=== PATIENT | male | born 1945 | race Caucasian/White ===

== ENCOUNTER 2017-07-24 19:07 | Emergency (ER) | payer MEDICARE, BC ==
[~2017-07-24] VITALS: Ht 182.9 cm; Wt 110.5 kg
[~2017-07-24 19:07] MED LIST: ALEVE 220MG220 MG PO; ATOXIMETIN-B1 CAP PO; B/P; BACTRIM DS 8001 TAB PO; CARAFATE 1GM1 G PO; CARDURA4 MG PO; CEPHALEXIN500 M1 PO; COLACE 100100 MG/CAP PO; COUMADIN 5MG5 MG/TAB PO; COUMADIN7.5 MG PO; DICLOFEN; DILAUDID 2MG TAB2 MG PO; FLUTICASON0.05 MG/Ac NS; HCTZ; HYDROCHLOROTH12.5 MG PO; LIPITOR 10MG10 MG; LIPITOR 10MG10 MG PO; MECLIZINE HCL25 M1 PO; MELOXICAM7.5 MG PO; MICROZIDE12.5 MG PO; MULTI VITAMINS1 TAB PO; MULTIPLE VITAMI1 CAP PO; NORCO 325 MG-51 TAB PO; OXYCODONE5 M1 PO; PEPCID 20MG TAB20 MG; PEPCID 20MG TAB20 MG PO; PEPCID20 MG PO; PERCOCET 325 MG1 TA2 PO; PREDNISONE20 MG PO; PRILOSEC 20MG20 MG PO; TRICOR145 MG PO; TYLENOL 325MG325 MG PO; ULTRAM100 MG PO; VALIUM 2MG T2 MG/TAB PO; VIT C; VIT D; VITAMIN C500 MG PO; ZITHROMAX 250M250 MG PO; ZITHROMAX Z PA250 MG PO; ZOFRAN 4MG T4 MG/TAB PO
[2017-07-24 19:11] VITALS: TEMP 96.9
[2017-07-24 20:02] LABS: BASO % 0.4 % (0.0-2.0); EOS # 0.1 (0.0-0.7); EOS % 1.3 % (0-4.0); GRAN # 6.9 (1.4-6.5); HEMATOCRIT 46.9 % (42.0-52.0); LYMPH # 0.8 (1.2-3.4); LYMPH % 9.4 % (20.0-51.0); MEAN CELL VOLUME 90 fl (80.0-100.0); MEAN CORPUSCULAR HEMOGLOBIN 31 pg (27.0-31.0); MEAN CORPUSCULAR HGB CONC 34 g/dl (33.0-37.0); MONO # 0.5 (0.1-0.6); MONO % 5.4 % (1.7-9.3); PLATELET COUNT 151 K/mm3 (130-400); RED BLOOD COUNT 5.21 M/mm3 (4.20-5.60); REDCELL DISTRIBUTION WIDTH-CV 13.3 % (11.5-14.5); WHITE BLOOD COUNT 8.3 K/mm3 (4.8-10.8)
[2017-07-24 20:15] LABS: ALANINE AMINOTRANSFERASE 35 U/L (21-72); ALBUMIN 4.4 gm/dL (3.5-5.0); ALKALINE PHOSPHATASE 56 U/L (50-136); ANION GAP 12 mmol/L (7-16); BLOOD UREA NITROGEN 28 mg/dL (9-20); CALCIUM 9.3 mg/dL (8.4-10.2); CARBON DIOXIDE 22 mmol/L (22-30); CHLORIDE 106 mmol/L (98-107); CREATININE, serum 1.36 mg/dL (0.66-1.25); GLUCOSE 122 mg/dL (74-106); POTASSIUM 3.5 mmol/L (3.4-5.0); SODIUM 140 mmol/L (137-145); TOTAL PROTEIN 6.9 gm/dL (6.4-8.2)
[2017-07-24 20:28] LABS: TROPONIN-I < 0.012 ng/mL (0.000-0.034)
[2017-07-24] MEDS ORDERED: ANTIVERT 25MG25 MG PO (20:57)
[2017-07-24 21:09] VITALS: BP 130/73; PULSE 64
== END 2017-07-24 21:09 | disposition home or self-care (01) ==
LOC: COL.ER 19:07
PROVIDERS: Emergency Medicine
DX: R42 Dizziness and giddiness (principal); E78.5 Hyperlipidemia, unspecified; I10 Essential (primary) hypertension; K21.9 Gastro-esophageal reflux disease without esophagitis; Z79.01 Long term (current) use of anticoagulants; Z86.718 Personal history of other venous thrombosis and embolism; Z87.891 Personal history of nicotine dependence
CPT/HCPCS: J2405

== ENCOUNTER → 2018-09-01 | Outpatient (CLI) | payer MEDICARE, BC ==
[~2018-09-01] MED LIST changes: +ANTIVERT 25MG25 MG PO
== END ==
LOC: COL.RAD 07:17
DX: N28.1 Cyst of kidney, acquired (principal); R35.0 Frequency of micturition

== ENCOUNTER → 2019-01-19 | Outpatient (CLI) | payer MEDICARE, BC ==
[~2019-01-19] MED LIST changes: +DULCOLAX STOOL100 MG PO; +FLONASEALLERGY NS; +MAG-OX 400400 MG/TAB PO; +PROAIR HFA0.09 MG/AC IH; +PYRIDIUM 100MG100 MG PO; +TOVIAZ4 MG PO
== END ==
LOC: COL.VAS 13:15
DX: M79.605 Pain in left leg (principal); Z86.711 Personal history of pulmonary embolism

== ENCOUNTER 2019-01-20 18:34 | Inpatient (IN) | payer MEDICARE, BC ==
[~2019-01-20] VITALS: Ht 182.9 cm; Wt 91.2 kg
[~2019-01-20 18:34] MED LIST changes: -DULCOLAX STOOL100 MG PO; -FLONASEALLERGY NS; -MAG-OX 400400 MG/TAB PO; -PROAIR HFA0.09 MG/AC IH; -PYRIDIUM 100MG100 MG PO; -TOVIAZ4 MG PO
[2019-01-20 19:43] LABS: ALBUMIN 3.8 gm/dL (3.5-5.0); BASO % 0.4 % (0.0-2.0); BILIRUBIN,TOTAL 1.3 mg/dL (0.0-1.0); CREATININE, serum 1.58 mg/dL (0.66-1.25); EOS # 0.4 (0.0-0.7); EOS % 3.3 % (0-4.0); GRAN # 8.2 (1.4-6.5); GRAN % 77.1 % (42.2-75.2); HEMATOCRIT 44.5 % (42.0-52.0); HEMOGLOBIN 15.1 g/dl (13.5-18.0); LYMPH # 1.1 (1.2-3.4); MEAN CELL VOLUME 92 fl (80.0-100.0); MEAN CORPUSCULAR HEMOGLOBIN 31 pg (27.0-31.0); MEAN CORPUSCULAR HGB CONC 34 g/dl (33.0-37.0); MEAN PLATELET VOLUME 10.4 fl (7.4-10.4); MONO # 0.9 (0.1-0.6); MONO % 8.8 % (1.7-9.3); PLATELET COUNT 143 K/mm3 (130-400); POTASSIUM 3.8 mmol/L (3.4-5.0); RED BLOOD COUNT 4.83 M/mm3 (4.20-5.60); REDCELL DISTRIBUTION WIDTH-CV 13.2 % (11.5-14.5); TOTAL PROTEIN 6.8 gm/dL (6.4-8.2)
[2019-01-20 19:49] LABS: INR 1.1 (0.8-3.0); PROTHROMBIN TIME 12.8 SECONDS (9.7-12.8)
[2019-01-20 19:54] LABS: TROPONIN-I 0.032 ng/mL (0.000-0.035)
[2019-01-20] MEDS ORDERED: FLONASEALLERGY NS (21:10)
[2019-01-20] MEDS ORDERED: MAG-OX 400400 MG/TAB PO (21:10)
[2019-01-20 22:14] VITALS: BP 141/68; PULSE 80; TEMP 98.2
--- NOTE | 2019-01-20 22:14 | NUR ---
Patient arrived to room 309 accompanied by . Patient able to ambulate to bed with SBA.
[2019-01-20] MEDS ORDERED: DULCOLAX STOOL100 MG PO (22:19)
[2019-01-20] MEDS ORDERED: TOVIAZ4 MG PO (22:22)
[2019-01-20] MEDS ORDERED: PROAIR HFA0.09 MG/AC IH (22:24)
[2019-01-20] MEDS ORDERED: PYRIDIUM 100MG100 MG PO (22:28)
[2019-01-21 00:11] VITALS: BP 100/56; PULSE 76; TEMP 98.8
--- NOTE | 2019-01-21 02:22 | NUR ---
Pain reassessed on pt, states pain is improved now at 6/10. Discussed IV dilaudid is another option for breakthrough pain, pt does not want anything else for pain at this time. Will notify this nurse if pain begins to worsen.
--- NOTE | 2019-01-21 02:40 | NUR ---
RT in to check patient's O2. Sp02 in 80's. Reported to this nurse that she was going to put pt on a few liters of oxygen.
[2019-01-21 03:47] VITALS: BP 110/66; PULSE 72; TEMP 98.5
--- NOTE | 2019-01-21 04:15 | NUR ---
PROJECT MANAGER called this nurse into room, IV site bleeding around cannula. New IV site started in left forearm. Old iv site in right AC discontinued with gauze applied.
--- NOTE | 2019-01-21 04:30 | NUR ---
Patient still c/o of pain with coughing/movement. Requested IV pain medication. DIlaudid ordered for breakthrough pain. Administered to patient. at this time.
--- NOTE | 2019-01-21 04:39 | NUR ---
Unable to change heparin gtt rate in computer, faxed down to pharmacy to adjust. Per heparin protocol, infusion decreased by 1.5 mls/hr. Changed from 20 mls/hr to 18.5. Verified on pump with NELY Berry. Heparin gtt infusing into new iv site in left forearm.
--- NOTE | 2019-01-21 05:10 | NUR ---
Patient reporting improved pain after dilaudid administration. Rated at 5/10.
--- NOTE | 2019-01-21 06:01 | NUR ---
Patient reports able to sleep for the past hour with pain under control. Per NATHANIEL Saravia, patient has remained in bed- using urinal. went home and will be back this morning. No further needs at this time.
--- NOTE | 2019-01-21 06:51 | NUR ---
Report received, went to meet patient and he is observed sleeping on his left side. Call light is within reach.
--- NOTE | 2019-01-21 07:03 | NUR ---
Report given to NELY Schaeffer. Patient resting in bed, no needs at this time.
[2019-01-21 07:30] VITALS: BP 118/55; PULSE 66; TEMP 98.4
--- NOTE | 2019-01-21 07:36 | NUR ---
Ultrasound called regarding bilateral lower doppler stating he had just had one completed on the and questioned if this needed to be repeated. Spoke with the PA taking care of patient for the day and received instructions to hold off on the testing. Notified ultrasound.
[2019-01-21 07:54] LABS: BASO % 0.4 % (0.0-2.0); EOS # 0.3 (0.0-0.7); EOS % 3.2 % (0-4.0); GRAN % 71.3 % (42.2-75.2); HEMATOCRIT 42.2 % (42.0-52.0); HEMOGLOBIN 14.2 g/dl (13.5-18.0); LYMPH # 1.5 (1.2-3.4); MEAN CELL VOLUME 92 fl (80.0-100.0); MEAN CORPUSCULAR HEMOGLOBIN 31 pg (27.0-31.0); MEAN CORPUSCULAR HGB CONC 34 g/dl (33.0-37.0); MEAN PLATELET VOLUME 10.5 fl (7.4-10.4); MONO % 9.7 % (1.7-9.3); PLATELET COUNT 137 K/mm3 (130-400); RED BLOOD COUNT 4.59 M/mm3 (4.20-5.60); REDCELL DISTRIBUTION WIDTH-CV 13.2 % (11.5-14.5)
[2019-01-21 08:08] LABS: CALCIUM 8.7 mg/dL (8.4-10.2); CREATININE, serum 1.48 mg/dL (0.66-1.25); POTASSIUM 3.6 mmol/L (3.4-5.0)
[2019-01-21 08:34] LABS: TROPONIN-I 6 HR POST INITIAL 0.048 ng/mL (0.000-0.034)
[2019-01-21 10:43] VITALS: BP 125/49; PULSE 66; TEMP 98.5
--- NOTE | 2019-01-21 11:16 | NUR ---
HepXa resulted at 0.44, no change to rate or dose required. Next draw 1700.
[2019-01-21 16:03] VITALS: BP 109/77; PULSE 72; TEMP 98.1
[2019-01-21 18:55] VITALS: BP 133/70; PULSE 76; TEMP 97.7
--- NOTE | 2019-01-21 19:06 | NUR ---
Patient is visiting with family. No pain complaints or further needs. HepXA is 0.36, rate remains the same. Report given to NELY Chen.
--- NOTE | 2019-01-21 19:45 | NUR ---
Patient resting in bed with family at bedside. Assessment completed- pt on oxygen for low Sp02 , currently at 95% with 2 L. Diminishe dlung sounds all lobes, pain with cough, but states he does not want anyting for pain at this time, will notify nurse if this changes. On heparin gtt at 18.5 mls/hr, next heparin xa in the morning. Ion hose on bilateral lower extremities. No further needs at this time.
[2019-01-22] VITALS (7 sets, daily range): BP systolic 105–122; BP diastolic 45–57; PULSE 62–71; TEMP 97.5–98.5
--- NOTE | 2019-01-22 05:21 | NUR ---
Pt slept most of the night, erports mild pain worse with cough, did not want anything for pain last night. On heparin gtt at 18.5 mls/hr into left forearm. Vitals stable, at bedside.
[2019-01-22 06:26] LABS: CALCIUM 8.5 mg/dL (8.4-10.2); CREATININE, serum 1.45 mg/dL (0.66-1.25); POTASSIUM 3.5 mmol/L (3.4-5.0)
[2019-01-22 06:33] LABS: BASO % 0.6 % (0.0-2.0); EOS # 0.4 (0.0-0.7); EOS % 5.6 % (0-4.0); GRAN # 4.7 (1.4-6.5); GRAN % 67.5 % (42.2-75.2); HEMATOCRIT 39.5 % (42.0-52.0); HEMOGLOBIN 13.6 g/dl (13.5-18.0); LYMPH # 1.2 (1.2-3.4); LYMPH % 16.8 % (20.0-51.0); MEAN CELL VOLUME 91 fl (80.0-100.0); MEAN CORPUSCULAR HEMOGLOBIN 32 pg (27.0-31.0); MEAN CORPUSCULAR HGB CONC 34 g/dl (33.0-37.0); MEAN PLATELET VOLUME 10.1 fl (7.4-10.4); MONO # 0.6 (0.1-0.6); MONO % 8.9 % (1.7-9.3); PLATELET COUNT 137 K/mm3 (130-400); RED BLOOD COUNT 4.32 M/mm3 (4.20-5.60); REDCELL DISTRIBUTION WIDTH-CV 13.1 % (11.5-14.5)
--- NOTE | 2019-01-22 07:16 | NUR ---
Report given to NELY Harris. Patient sitting upin bed with at bedside. NO needs at this time.
--- NOTE | 2019-01-22 07:22 | NUR ---
RECEIVED REPORT FROM NELY BLEVINS.
[2019-01-22 08:01] LABS: INR 1.2 (0.8-3.0); PROTHROMBIN TIME 13.7 SECONDS (9.7-12.8)
--- NOTE | 2019-01-22 09:02 | NUR ---
Initial visit; Nurse with patient, Collar Starcher spoke with family member who stated that Mahin is "fine right now," just a little impatient to go home. Collar Starcher wished Mahin and family well.
--- NOTE | 2019-01-22 09:24 | NUR ---
PT AWAKE,A/OX3.RESTING IN BED.AWARE OF LIMITED ACTIVITY.OXYGEN AT 2.5L/NC.BREATHING EVEN AND UNLABORED.PT ON HEPARIN DRIP WITH RATE AT 19.5ML/HR.RECHECK HEP XA AT 1200.PT DENIES ANY NEEDS AT THIS TIME.JOÃO,STUDENT NURSE ASSISTING WITH PATIENT CARE TODAY.WILL CONTINUE TO MONITOR.CALL LIGHT IN REACH
[2019-01-22 10:37] LABS: PROTEIN C ACTIVITY 100 % (70-150)
--- NOTE | 2019-01-22 13:46 | NUR ---
Primary nurse was assisted [facility] [id number] patient care by [employer] student Cammie Riley and [facility] instructor Adelina Sanders RN-BN.
--- NOTE | 2019-01-22 15:13 | NUR ---
BECCA guillaume met with the patient and patient's (Ying) to discuss discharge plan. The patient lives in [place] with his . The patient does not use any DME, but has a walking stick available to him. The patient reports independence with ADLs. The patient's PCP is Dr. Anthony and he receives his medications from [facility] [employer] and reports no difficulties obtaining his medications. The patient and patient's believe that he has a DPOA-HC completed at Dr. Anthony's office. BECCA guillaume attempted to contact Dr. Anthony's office and left a message requesting a copy of the DPOA-HC. The patient plans to return home upon dischage. No identified needs at this time, but SW to continue to follow.
--- NOTE | 2019-01-22 18:13 | NUR ---
PT HAS HAD AN UNEVENFUL DAY.SITTING UP IN BED AT THIS TIME EATING SUPPER.HEP XA DRAWN.PATIENT DENIES ANY NEEDS AT THIS TIME.WILL ADJUST HEPARIN ACCORDINGLY.CALL LIGHT IN REACH
--- NOTE | 2019-01-22 20:22 | NUR ---
PT IN BED WITH HOB AT 45 DEGREE ANGLE, DENIES PAIN OR DISCOMFORT, BY SIDE. PT HAS TASNEEM HOSE ON AND HEPARIN DRIP STILL GOING AT 19.5. AWARE LAB WILL COME IN AT MIDNIGHT TO CHECK VALUES FOR HEPARIN. NO NEEDS AT THIS TIME, CALL LIGHT WITHIN REACH.
--- NOTE | 2019-01-22 20:47 | NUR ---
CALLED YANDEL ARMSTRONG IN REFERENCE TO PT HAVING BLOOD IN SPUTUM. NO NEW ORDERS AT THIS TIME.
--- NOTE | 2019-01-23 00:52 | NUR ---
PT HAS BEEN INCONTINENT OF URINE AND HAD TO DO COMPLETE BED CHANGE THIS IS THE SECOND TIME THIS NIGHT THAT HE WAS INCONTINENT. PT'S ASSISTED WITH CHANGING PT. PT DID NOT WANT TO CHANGE UNDERWEAR, BUT ADVISED THAT IT WAS WET AND NEEDED TO BE CHANGED. A PULL UP WAS GIVEN TO PT.
[2019-01-23 03:37] VITALS: BP 108/57; PULSE 65; TEMP 98
--- NOTE | 2019-01-23 06:37 | NUR ---
UNEVENTFUL NIGHT, PT RESTED/SLEPT WELL, WITH NO C/O PAIN OR DISCOMFORT. PT'S AT BEDSIDE AND ASSISTED PT WHEN NEEDED, BUT PT STAYED IN BED MOST OF THE NIGHT. PT HAS CALL LIGHT WITHIN REACH.
--- NOTE | 2019-01-23 06:46 | NUR ---
report received from NELY Reddy.
--- NOTE | 2019-01-23 06:47 | NUR ---
hep XA 0.46,will recheck on 01/24/19 at 0600 per protocol.
[2019-01-23 07:09] LABS: INR 1.2 (0.8-3.0); PROTHROMBIN TIME 13.8 SECONDS (9.7-12.8)
[2019-01-23 07:13] LABS: BASO % 0.6 % (0.0-2.0); EOS # 0.4 (0.0-0.7); EOS % 6.4 % (0-4.0); GRAN # 4.6 (1.4-6.5); GRAN % 70.2 % (42.2-75.2); HEMATOCRIT 39.7 % (42.0-52.0); HEMOGLOBIN 13.2 g/dl (13.5-18.0); LYMPH % 15.2 % (20.0-51.0); MEAN CELL VOLUME 92 fl (80.0-100.0); MEAN CORPUSCULAR HEMOGLOBIN 31 pg (27.0-31.0); MEAN CORPUSCULAR HGB CONC 33 g/dl (33.0-37.0); MEAN PLATELET VOLUME 10.2 fl (7.4-10.4); MONO # 0.5 (0.1-0.6); MONO % 7.1 % (1.7-9.3); PLATELET COUNT 162 K/mm3 (130-400); RED BLOOD COUNT 4.32 M/mm3 (4.20-5.60); REDCELL DISTRIBUTION WIDTH-CV 12.9 % (11.5-14.5)
[2019-01-23 07:20] LABS: CALCIUM 8.6 mg/dL (8.4-10.2); CREATININE, serum 1.37 mg/dL (0.66-1.25); POTASSIUM 3.7 mmol/L (3.4-5.0)
[2019-01-23 07:27] VITALS: BP 119/50; PULSE 62; TEMP 98.1
--- NOTE | 2019-01-23 08:07 | NUR ---
Assessment complete.patient awake,a/ox3.denies pain or discomfort at this time.oxygen at 2.5l/nc.reports SOB on exertion.reports red itchy rash to back.Heparin gtt infusing at 19.5ml/hr.hep xa to be rechecked on 01/24/19 at 0600 per protocol.patient has ann hose on.reports no side pain.no other needs voiced.call light in reach
[2019-01-23 11:18] VITALS: BP 136/64; PULSE 59; TEMP 98.1
[2019-01-23 15:12] VITALS: BP 119/59; PULSE 64; TEMP 97.8
[2019-01-23 16:22] LABS: FACTOR II ACTIVITY 92 % (75 - 145)
--- NOTE | 2019-01-23 18:24 | NUR ---
PT RESTING IN RECLINER AT THIS TIME.HEPARIN DRIP INFUSING AT 19.5ML/HR.PT REPORTS COUGHING UP RED STRICK OF BLOOD. AWARE AND STATES TO MONITOR FOR ANY WORSENING. NOTIFIED.PATIENT REPORTS HAVING A BM AND STATES HE FEELS BETTER.DENIES ANY OTHER NEEDS AT THIS TIME.CALL LIGHT IN REACH
--- NOTE | 2019-01-23 19:15 | NUR ---
REPORT GIVEN TO NELY SPANGLER.
[2019-01-23 19:50] VITALS: BP 119/53; PULSE 63; TEMP 98.2
--- NOTE | 2019-01-23 20:47 | NUR ---
PT IN BED WITH HOB AT 30 DEGREE ANGLE, DENIES PAIN OR DISCOMFORT. PT ALREADY IN BED WITH LIGHTS OFF. BY SIDE AND CALL LIGHT WITHIN REACH. NO NEEDS AT THIS TIME.
[2019-01-23 23:35] VITALS: BP 140/73; PULSE 70
[2019-01-24 03:57] VITALS: BP 91/80; PULSE 67
--- NOTE | 2019-01-24 05:52 | NUR ---
UNEVENTFUL NIGHT FOR PT. PT HAS BEEN SLEEPING WELL. PT SOFTLY SNORES AND RESP EVEN AND UNLABORED, WITH NO S/S OF PAIN OR DISCOMFORT. PT HAS NOT BEEN SCORING ON HIS DETOX AND NEUROS ARE NORMAL. PT IS HOPING TO BE RELEASED TODAY. PT IS PLEASANT AND COOPERATIVE. CALL LIGHT WITHIN REAH.
--- NOTE | 2019-01-24 05:58 | NUR ---
PT HAS BEEN SLEEPING/RESTING IN BED, WITH NO C/O PAIN OR DISCOMFORT. PT HAS NOT REPORTED ANYMORE BLOOD IN HIS SPUTUM WHEN HE COUGHS UP. PT HAS HAD HIS IV CHANGED TODAY AT 0010. 20G PLACED IN RIGHT FOREARM X2 ATTEMPTS WITHOUT ANY DIFFICULTIES AND PT TOLERATED WELL. IV REMOVED FROM LEFT FOREARM, PRESSURE APPLIED TILL BLEEDING STOPPED, AND THEN PROTECTIVE DRSG APPLIED. PT ADVISED EARLIER IN SHIFT THAT HAS BEEN GETTING UP TO ASSIST HIM TO THE BATHROOM. CALL LIGHT WITHIN REACH.
--- NOTE | 2019-01-24 07:02 | NUR ---
PT'S THOUGHT THAT PT WAS GASPING FOR AIR. WENT INTO ROOM AND PT WAS BREAHING FINE, RESP EVEN AND UNLABORED, O2 SATS WERE 93% ON 3L/NC. PT DID NOT HAVE ANY C/O OF SOB. PT SHOWED ME THAT HE HAD COUGHED UP SPUTUM WITH BLOOD BUT ONLY TWICE DURING THE NIGHT. THE SPUTUM WAS A VERY SCANT AMOUNT WITH A SMALL AMOUNT OF DARK RED BLOOD. NO FURTHER NEEDS AND PT AND GOING BACK TO SLEEP. CALL LIGHT WITHIN REACH.
[2019-01-24 07:35] VITALS: BP 117/55; PULSE 66; TEMP 98
[2019-01-24 09:07] LABS: BASO % 0.6 % (0.0-2.0); EOS # 0.5 (0.0-0.7); EOS % 7.2 % (0-4.0); GRAN # 4.5 (1.4-6.5); GRAN % 72.3 % (42.2-75.2); HEMATOCRIT 39.7 % (42.0-52.0); HEMOGLOBIN 13.3 g/dl (13.5-18.0); LYMPH # 0.7 (1.2-3.4); LYMPH % 10.9 % (20.0-51.0); MEAN CELL VOLUME 92 fl (80.0-100.0); MEAN CORPUSCULAR HEMOGLOBIN 31 pg (27.0-31.0); MEAN CORPUSCULAR HGB CONC 34 g/dl (33.0-37.0); MEAN PLATELET VOLUME 10.2 fl (7.4-10.4); MONO # 0.5 (0.1-0.6); MONO % 8.4 % (1.7-9.3); PLATELET COUNT 171 K/mm3 (130-400); RED BLOOD COUNT 4.31 M/mm3 (4.20-5.60); REDCELL DISTRIBUTION WIDTH-CV 12.8 % (11.5-14.5)
[2019-01-24 09:13] LABS: CALCIUM 8.6 mg/dL (8.4-10.2); CREATININE, serum 1.39 mg/dL (0.66-1.25); POTASSIUM 3.9 mmol/L (3.4-5.0)
--- NOTE | 2019-01-24 09:18 | NUR ---
Assessment complete.patient awake,sitting up in bed eating breakfast with spouse at bedside.A/o x3.oxygen at 2.5l/nc.breathing even and unlabored.reports cough with minimal blood tinge.Heparin infusing at 19.5ml/hr.hep xa remains therapeutic.will continue to monitor.call light in reach
[2019-01-24 11:28] LABS: INR 1.3 (0.8-3.0)
[2019-01-24 12:16] VITALS: BP 106/50; PULSE 60; TEMP 98
--- NOTE | 2019-01-24 16:24 | NUR ---
THIS RN AMBULATED PATIENT AROUND THE UNIT.GAIT IS STABLE.NO SOB NOTED.WILL CONTINUE TO MONITOR.CALL LIGHT IN REACH
[2019-01-24 18:00] VITALS: BP 107/46; PULSE 62; TEMP 98
--- NOTE | 2019-01-24 18:21 | NUR ---
PATIENT RESTING IN RECLINER.ABLE TO AMBULATED WITH LIMITED ASSIST.HEP DRIP INFUSING. AT BEDSIDE.PATIENT DENIES ANY NEEDS AT THIS TIME.CALL LIGHT IN REACH
--- NOTE | 2019-01-24 19:01 | NUR ---
report given to NELY Chen
--- NOTE | 2019-01-24 20:46 | NUR ---
Patient sitting up in bed with at bedside. Denies pain at htis time. Assessment completed- pt reports able to get up and walk around the halls this afternoon. On 1 L oxygen via NC. Heparin gtt infusing at 19.5 mls/hr into right forearm, IV site no redness/edema. No further needs at this time.
[2019-01-24 23:28] VITALS: BP 114/41; PULSE 64; TEMP 98.6
[2019-01-25 03:11] VITALS: BP 111/44; PULSE 69
--- NOTE | 2019-01-25 05:06 | NUR ---
Pt slept for most of the night, no reports of pain. Heparin gtt infusing at 19.5 mls/hr, recheck this morning.
[2019-01-25 05:52] LABS: HEMATOCRIT 40.1 % (42.0-52.0); HEMOGLOBIN 13.3 g/dl (13.5-18.0); MEAN CELL VOLUME 92 fl (80.0-100.0); MEAN CORPUSCULAR HEMOGLOBIN 31 pg (27.0-31.0); MEAN CORPUSCULAR HGB CONC 33 g/dl (33.0-37.0); MEAN PLATELET VOLUME 9.6 fl (7.4-10.4); PLATELET COUNT 180 K/mm3 (130-400); RED BLOOD COUNT 4.35 M/mm3 (4.20-5.60)
[2019-01-25 06:28] LABS: INR 1.4 (0.8-3.0); PROTHROMBIN TIME 15.7 SECONDS (9.7-12.8)
[2019-01-25 08:42] VITALS: BP 132/59; PULSE 68; TEMP 97.6
[2019-01-25] MEDS ORDERED: LOVENOX 100100 MG/ML SQ (11:38)
[2019-01-25 12:17] LABS: LUPUS ANTICOAGULANT INR 1.3 (()); LUPUS ANTICOAGULANT PT 14.1 sec (())
[2019-01-25 12:18] VITALS: BP 134/46; PULSE 70; TEMP 98.2
--- NOTE | 2019-01-25 13:28 | NUR ---
PT WALKED WITH RT AND PT ON ROOM AIR. SPO2 90% WALKED APPROX. 600 FEET ON ROOM AIR SPO2 92% BY END OF WALK AT REST.
--- NOTE | 2019-01-25 15:58 | NUR ---
workers compensation consultant attended clinical rounds and met with patient and spouse as patient will discharge home today. Worker presented IM.
--- NOTE | 2019-01-25 16:00 | NUR ---
Gave pt discharge information, answered all questions. Removed INT to RF. catheter intact, no redness or swelling noted. Escorted pt out via wheelchair. Pt carried out all personal items.
--- NOTE | 2019-01-25 16:53 | NUR ---
Pt sitting in chair. Breathing even and unlabored, denies shortness of breath. Pt had removed TASNEEM hodiamond, helped pt to reapply them. Two small red abrasions on shins. Completed morning assessment. Pt denies any needs at this time. Call light in reach.
--- NOTE | 2019-01-25 17:08 | NUR ---
tHIS RN read and agreed with Daya Rn's shift assessment after performing my own. Pt was on 1 L via NC, denied SOB. No edema present. at bedside
== END 2019-01-25 16:00 | disposition home or self-care (01) | DRG 175 ==
LOC: COL.ER 18:34 → MEDICAL 20:34
PROVIDERS: Emergency Medicine; Hospitalist; Nurse Practitioner; Physician Assistant; ADMIT Family Medicine
DX: I26.99 Other pulmonary embolism without acute cor pulmonale (principal); J96.01 Acute respiratory failure with hypoxia; N17.9 Acute kidney failure, unspecified; R04.2 Hemoptysis; E78.5 Hyperlipidemia, unspecified; I12.9 Hypertensive chronic kidney disease with stage 1 through stage 4 chronic kidney disease, or unspecified chronic kidney disease; N18.9 Chronic kidney disease, unspecified; I27.20 Pulmonary hypertension, unspecified; J84.10 Pulmonary fibrosis, unspecified; R25.1 Tremor, unspecified; Z87.891 Personal history of nicotine dependence; Z79.01 Long term (current) use of anticoagulants; Z86.711 Personal history of pulmonary embolism
CPT/HCPCS: 99222-AI; 99223-AI; 99233-AI; 99239; J1170; J1644; J1650; J7040; Q9967

== ENCOUNTER 2019-02-05 10:46 | Inpatient (IN) | payer MEDICARE, BC ==
[2019-02-05] VITALS (16 sets, daily range): BP systolic 104–134; BP diastolic 57–89; PULSE 71–81; TEMP 98–98.3
[~2019-02-05] VITALS: Ht 182.9 cm; Wt 112.3 kg
[~2019-02-05 10:46] MED LIST changes: +DULCOLAX STOOL100 MG PO; +FLONASEALLERGY NS; +LOVENOX 100100 MG/ML SQ; +MAG-OX 400400 MG/TAB PO; +PROAIR HFA0.09 MG/AC IH; +PYRIDIUM 100MG100 MG PO; +TOVIAZ4 MG PO
[2019-02-05 11:15] LABS: BASO # 0.1 (0.0-0.2); BASO % 0.5 % (0.0-2.0); EOS # 0.8 (0.0-0.7); EOS % 8.5 % (0-4.0); GRAN # 6.1 (1.4-6.5); GRAN % 65.4 % (42.2-75.2); HEMATOCRIT 45.2 % (42.0-52.0); HEMOGLOBIN 15.5 g/dl (13.5-18.0); LYMPH # 1.6 (1.2-3.4); LYMPH % 17.7 % (20.0-51.0); MEAN CELL VOLUME 89 fl (80.0-100.0); MEAN CORPUSCULAR HEMOGLOBIN 31 pg (27.0-31.0); MEAN CORPUSCULAR HGB CONC 34 g/dl (33.0-37.0); MEAN PLATELET VOLUME 9.1 fl (7.4-10.4); MONO # 0.6 (0.1-0.6); MONO % 6.7 % (1.7-9.3); PLATELET COUNT 335 K/mm3 (130-400); RED BLOOD COUNT 5.07 M/mm3 (4.20-5.60); REDCELL DISTRIBUTION WIDTH-CV 13.2 % (11.5-14.5)
[2019-02-05 11:22] LABS: INR 1.8 (0.8-3.0); PROTHROMBIN TIME 19.9 SECONDS (9.7-12.8)
[2019-02-05 11:28] LABS: BILIRUBIN,TOTAL 0.6 mg/dL (0.0-1.0); C-REACTIVE PROTEIN 0.6 mg/dL (0.0-0.9); CALCIUM 9.8 mg/dL (8.4-10.2); CREATININE, serum 1.48 mg/dL (0.66-1.25); POTASSIUM 3.9 mmol/L (3.4-5.0); TOTAL PROTEIN 6.8 gm/dL (6.4-8.2)
[2019-02-05] MEDS ORDERED: CLARITIN 1010 MG/TAB PO (11:52)
[2019-02-05] MEDS ORDERED: COUMADIN 5MG5 MG/TAB PO (11:53)
--- NOTE | 2019-02-05 15:03 | NUR ---
SEE MERGE FOR MEDICATION ADMIN. TIMES AND INTRA AND POST PROCEDURE RASS/CONSCIOUS SEDATION SCORE/ASSESSMENT
[2019-02-05] MEDS ORDERED: COUMADIN 77.5 MG/TAB PO (17:11)
--- NOTE | 2019-02-05 19:20 | NUR ---
Report given by Niurka Javier-- while in room Dr Fonseca to see pt - states taking him for surgery now for cysto- clot evacuation-- got consent signed , pre-op checklist done. Ross to wide open CBI- urine dark red-
--- NOTE | 2019-02-05 19:35 | NUR ---
Dr. Fonseca states he will remove the 30cc of air from the fem stop to right groin while in surgery- per pts requests- pt states i think it will hurt! mo trinityage - groin soft
--- NOTE | 2019-02-05 19:35 | NUR ---
OR nurse here to take pt down to surgery- VSS
--- NOTE | 2019-02-05 19:46 | NUR ---
Pt report was given to Daya MCKAY and Niurka MCKAY. Pt up to unit from production laborer s/p IVC placement with continuous TURP irrigation to prevent clots and output batres red wiht clots noted. Pt alert and oriented. Pt has closure device on right femoral site with 30cc air for pressure. Site CDI and no drainage noted. Pt on bedrest for 2 hours and came to see pt and ordered Cysto and they would deflate device and watch site before procedure. Pt had total 9000ml out batres red urine/saline with a total of 2 bags in before 1814. Pt report given to Kristi MCKAY and consent obtained by Kristi MCKAY. Pt VS WNL and call light in reach at all times with spouse at bedside. Med were reconciled and admission assessment completed.
--- NOTE | 2019-02-05 21:30 | NUR ---
Back from surgery- VSS, Ross to CBI with light pink urine- no clots noted- Right groin site with bandaid- no drainage- no hematoma IV fluids at 75cc/hr.
[2019-02-06] VITALS (7 sets, daily range): BP systolic 101–114; BP diastolic 47–59; PULSE 63–100; TEMP 97.2–98.9
--- NOTE | 2019-02-06 00:20 | NUR ---
No requests, did tolerate some jello, no nausea, Tele on, scd,s on, Ross to CBI with light pink urine, did have 2 small clots pass without problems- Right groin soft, no drainage- bandaid intact
--- NOTE | 2019-02-06 04:32 | NUR ---
VSS,has been resting for a few hours, IV fluids at 75cc/hr, Ross to CBI with pink to light red urine-- occasional small clots.
--- NOTE | 2019-02-06 06:00 | NUR ---
Did get about 3-4 hours of sleep last night- denies pain, has had a few bladder spasms but only last a few seconds --did pass a few small clots, urine this morning light pink- CBI ongoing
--- NOTE | 2019-02-06 07:00 | NUR ---
Report received from NELY Berry. Pt in bed resting with at bedside and Dr. Fonseca visiting with patient. Will continue to [facility].
[2019-02-06 08:56] LABS: BASO % 0.4 % (0.0-2.0); EOS # 1.2 (0.0-0.7); EOS % 13.1 % (0-4.0); GRAN # 6.4 (1.4-6.5); GRAN % 68.6 % (42.2-75.2); HEMATOCRIT 37.5 % (42.0-52.0); LYMPH % 10.3 % (20.0-51.0); MEAN CELL VOLUME 92 fl (80.0-100.0); MEAN CORPUSCULAR HEMOGLOBIN 31 pg (27.0-31.0); MEAN CORPUSCULAR HGB CONC 33 g/dl (33.0-37.0); MEAN PLATELET VOLUME 9.4 fl (7.4-10.4); MONO # 0.7 (0.1-0.6); PLATELET COUNT 251 K/mm3 (130-400); RED BLOOD COUNT 4.07 M/mm3 (4.20-5.60); REDCELL DISTRIBUTION WIDTH-CV 13.4 % (11.5-14.5)
[2019-02-06 09:04] LABS: HEMOGLOBIN 12.5 g/dl (13.5-18.0)
[2019-02-06 09:06] LABS: CALCIUM 8.3 mg/dL (8.4-10.2); CREATININE, serum 1.38 mg/dL (0.66-1.25); POTASSIUM 3.9 mmol/L (3.4-5.0)
[2019-02-06 09:39] LABS: INR 1.9 (0.8-3.0); PROTHROMBIN TIME 21.3 SECONDS (9.7-12.8)
--- NOTE | 2019-02-06 09:50 | NUR ---
Assessment charted. Pt OOB with SBA for CBI and IVF, steady on his feet. Had a BM. Upon ambulating urine became redenned so adjusted CBI accordingly. Currently running at a slow to moderate rate to keep urine pink and clear. Edcuated on catheter care and using creams to prevent infection, discussed POC for today and tomorrow. Pt doing well, denies pain, TEDs and SCDs bilaterally, denies pain except intermittent bladder spasms when passing clots. Will continue to monitor.
[2019-02-06] MEDS ORDERED: MYRBETR25MG PO (17:05)
--- NOTE | 2019-02-06 18:25 | NUR ---
Pt has done well today. CBI running at slow rate, no clots or issues with running, urine is peach and clear. Pt has been up to chair, back to bed, up to bathroom for BM, has had some bladder spasms- provided B&O suppository. at bedside, taking PO well but prefers gatorade to water. Will give bedside shift report to nighthshift nruse who will resume care.
--- NOTE | 2019-02-06 20:30 | NUR ---
Initial shift assessment done- denies pain at this time, VSS, Ross with CBI-slow rate- urine with clear pink urine. Tele on
[2019-02-07 00:54] VITALS: BP 103/49; PULSE 72; TEMP 98.4
[2019-02-07 05:00] VITALS: BP 116/57
[2019-02-07 05:11] VITALS: BP 116/57; PULSE 65; TEMP 98
--- NOTE | 2019-02-07 06:00 | NUR ---
Slept fair last night-- CBI slow- urine pink-no clots seen,,,states did have just one spasm during the night-- denies need for pain meds- tele on
--- NOTE | 2019-02-07 07:15 | NUR ---
Bedside shift report received from NELY Berry. Pt in bed resting with at bedside. Denies needs, will continue to monitor.
[2019-02-07 08:00] VITALS: BP 117/40; PULSE 64; TEMP 98.1
--- NOTE | 2019-02-07 09:25 | NUR ---
Assessment charted. Marian ordered prime and pull and 6 bottle routine. Clamped darling catheter, primed bladder with 200 mls of CBI fluid. Aspirated 30 mls of fluid from baloon. Removed by student nurse, pt tolerated well. Pericare provided. Edcuated on 6 bottle routine. Pt doing well, good PO intake. Denies pain. INT to LH. Will continue to monitor.
[2019-02-07 10:56] LABS: BASO # 0.1 (0.0-0.2); BASO % 0.5 % (0.0-2.0); EOS # 3.6 (0.0-0.7); EOS % 38.5 % (0-4.0); GRAN # 4.2 (1.4-6.5); GRAN % 44.2 % (42.2-75.2); HEMATOCRIT 37.4 % (42.0-52.0); HEMOGLOBIN 12.4 g/dl (13.5-18.0); LYMPH # 1.1 (1.2-3.4); LYMPH % 11.3 % (20.0-51.0); MEAN CELL VOLUME 93 fl (80.0-100.0); MEAN CORPUSCULAR HEMOGLOBIN 31 pg (27.0-31.0); MEAN CORPUSCULAR HGB CONC 33 g/dl (33.0-37.0); MEAN PLATELET VOLUME 9.7 fl (7.4-10.4); MONO # 0.5 (0.1-0.6); MONO % 4.9 % (1.7-9.3); PLATELET COUNT 224 K/mm3 (130-400); RED BLOOD COUNT 4.01 M/mm3 (4.20-5.60); REDCELL DISTRIBUTION WIDTH-CV 13.6 % (11.5-14.5)
[2019-02-07 11:08] LABS: INR 1.6 (0.8-3.0); PROTHROMBIN TIME 17.7 SECONDS (9.7-12.8)
[2019-02-07 11:13] LABS: CALCIUM 8.3 mg/dL (8.4-10.2); CREATININE, serum 1.19 mg/dL (0.66-1.25); POTASSIUM 3.6 mmol/L (3.4-5.0)
--- NOTE | 2019-02-07 11:47 | NUR ---
Patient lives at home with his (Ying Roberson) in [place], [place] and plans to return home upon discharge. Patient is independent with daily living activities, he does not have any durable medical equipment needs at this time, his primary care physician is Dr. Vick Anthony and also Dr. Rossi Amador as needed, his pharmacy is [email or web address], and he does not have advance directives completed at this time. Patient is retired from [employer] and has no further needs at this time.
[2019-02-07 12:00] VITALS: BP 109/54; PULSE 68; TEMP 98.1
[2019-02-07] MEDS ORDERED: CIPRO 500MG TA500 MG PO (15:22)
[2019-02-07 16:15] VITALS: BP 108/48; PULSE 67; TEMP 98.3
--- NOTE | 2019-02-07 16:53 | NUR ---
Discharge teaching completed at this time. Pt received dishcarge packet, reviewed f/u appointments and they will call tomorrow with appointment times, reviewed lab f/u, new medications. INT d/c'd by student nurse, tip intact. Pt left with all belongings. Answered all qeustions. Escorted out via w/c by medical staff. to drive home, criteria met.
== END 2019-02-07 16:35 | disposition home or self-care (01) | DRG 662 ==
LOC: COL.ER 10:46 → COL.AMSURD 14:37 → MEDICAL 17:23 → COL.AMSURD 02-06 07:56 → MEDICAL 02-06 07:56
PROVIDERS: Family Medicine; Urology; ADMIT Family Medicine
PROC: 0TCB8ZZ Extirpation of Matter from Bladder, Via Natural or Artificial Opening Endoscopic (ICD-10-PCS; 2019-02-05)
PROC: 0W3R8ZZ Control Bleeding in Genitourinary Tract, Via Natural or Artificial Opening Endoscopic (ICD-10-PCS; principal; 2019-02-05 20:15)
PROC: 06H03DZ Insertion of Intraluminal Device into Inferior Vena Cava, Percutaneous Approach (ICD-10-PCS; 2019-02-05 20:15)
DX: R31.0 Gross hematuria (principal); I26.99 Other pulmonary embolism without acute cor pulmonale; D68.32 Hemorrhagic disorder due to extrinsic circulating anticoagulants; I27.82 Chronic pulmonary embolism; T45.515A Adverse effect of anticoagulants, initial encounter; Z79.01 Long term (current) use of anticoagulants; Z86.718 Personal history of other venous thrombosis and embolism; N17.9 Acute kidney failure, unspecified; N18.9 Chronic kidney disease, unspecified; R25.1 Tremor, unspecified; E78.5 Hyperlipidemia, unspecified; I12.9 Hypertensive chronic kidney disease with stage 1 through stage 4 chronic kidney disease, or unspecified chronic kidney disease; Z88.0 Allergy status to penicillin; Z87.891 Personal history of nicotine dependence
CPT/HCPCS: OP; 99232-AI; 99239; C1769; C1880; C1894; J0690; J1644; J2250; J2405; J2704; J3010; J3480; J7030

== ENCOUNTER 2019-02-14 15:51 | Inpatient (IN) | payer MEDICARE, BC ==
[~2019-02-14] VITALS: Ht 182.9 cm; Wt 121.6 kg
[~2019-02-14 15:51] MED LIST changes: +CIPRO 500MG TA500 MG PO; +CLARITIN 1010 MG/TAB PO; +COUMADIN 77.5 MG/TAB PO; -LIPITOR 10MG10 MG PO; +LIPITOR 40MG TA40 MG PO; +MYRBETR25MG PO; +PRIL40 PO; -PRILOSEC 20MG20 MG PO
[2019-02-14 16:27] LABS: BASO % 0.3 % (0.0-2.0); EOS # 0.8 (0.0-0.7); EOS % 7.6 % (0-4.0); GRAN # 7.1 (1.4-6.5); GRAN % 70.8 % (42.2-75.2); HEMATOCRIT 38.5 % (42.0-52.0); HEMOGLOBIN 12.6 g/dl (13.5-18.0); LYMPH # 1.5 (1.2-3.4); LYMPH % 14.7 % (20.0-51.0); MEAN CELL VOLUME 93 fl (80.0-100.0); MEAN CORPUSCULAR HEMOGLOBIN 31 pg (27.0-31.0); MEAN CORPUSCULAR HGB CONC 33 g/dl (33.0-37.0); MEAN PLATELET VOLUME 9.7 fl (7.4-10.4); MONO # 0.6 (0.1-0.6); PLATELET COUNT 153 K/mm3 (130-400); RED BLOOD COUNT 4.12 M/mm3 (4.20-5.60)
[2019-02-14 16:31] LABS: INR 1.1 (0.8-3.0); PROTHROMBIN TIME 12.9 SECONDS (9.7-12.8)
[2019-02-14 16:41] LABS: ALBUMIN 3.9 gm/dL (3.5-5.0); BILIRUBIN,TOTAL 0.7 mg/dL (0.0-1.0); C-REACTIVE PROTEIN 1.8 mg/dL (0.0-0.9); CALCIUM 9.3 mg/dL (8.4-10.2); CREATININE, serum 2.15 (0.66-1.25); POTASSIUM 4.1 mmol/L (3.4-5.0); TOTAL PROTEIN 6.6 gm/dL (6.4-8.2)
[2019-02-14 16:46] VITALS: BP 130/80; PULSE 75
[2019-02-14 16:50] LABS: TROPONIN-I 0.024 ng/mL (0.000-0.035)
[2019-02-14 18:11] LABS: COLLECTION METHOD CLEAN CATCH
[2019-02-14 18:32] LABS: MUCOUS Present /lpf; PH 6 (5-8); SQUAMOUS EPITHELIAL 0-2 /hpf; URINE APPEARANCE Hazy; URINE BACTERIA Rare /hpf; URINE BILIRUBIN Negative (NEGATIVE); URINE BLOOD 3+ (NEGATIVE); URINE COLOR Yellow; URINE GLUCOSE Negative (NEGATIVE); URINE KETONE Trace (NEGATIVE); URINE LEUKOCYTE ESTERASE 3+ (NEGATIVE); URINE NITRATE Negative (NEGATIVE); URINE PROTEIN(semi-quant) 1+ (NEGATIVE); URINE RBC >50 /hpf
--- NOTE | 2019-02-14 20:05 | NUR ---
Pt arrived to room 319, transferred per stretcher by ED staff. Pt awake, a&o, cooperative c cares. Family at bedside. Pt/family oriented to room, unit policies et current POC. Questions invited et answered, pt/family verbalize understanding. Pt denies needs at this time. Call light in reach, will continue c admit process.
[2019-02-14 20:18] VITALS: BP 120/67; PULSE 77; TEMP 98.4
[2019-02-14] MEDS ORDERED: VITAMIN C500 MG PO (21:24)
[2019-02-14] MEDS ORDERED: COLACE 100100 MG/CAP PO (21:25)
[2019-02-14] MEDS ORDERED: PYRIDIUM 100MG100 MG PO (21:39)
[2019-02-14] MEDS ORDERED: PERCOCET 325 MG1 TA2 PO (21:40)
[2019-02-14] MEDS ORDERED: LOVENOX120 MG/0.8 SQ (21:40)
[2019-02-14] MEDS ORDERED: COUMADIN 5MG5 MG/TAB PO (21:41)
[2019-02-14 23:28] VITALS: BP 111/59; PULSE 81; TEMP 98.8
[2019-02-15] VITALS (7 sets, daily range): BP systolic 97–141; BP diastolic 46–69; PULSE 67–80; TEMP 97.8–99.3
--- NOTE | 2019-02-15 06:50 | NUR ---
Received bedside report from NELY Coleman. Pt awake and in bed, verbalized no needs at this time. Will continue to monitor.
[2019-02-15 08:00] LABS: BASO % 0.4 % (0.0-2.0); CALCIUM 8.5 mg/dL (8.4-10.2); CREATININE, serum 1.43 (0.66-1.25); EOS # 0.5 (0.0-0.7); EOS % 6.8 % (0-4.0); GRAN % 65.6 % (42.2-75.2); HEMOGLOBIN 10.7 g/dl (13.5-18.0); LYMPH # 1.4 (1.2-3.4); LYMPH % 17.6 % (20.0-51.0); MEAN CELL VOLUME 94 fl (80.0-100.0); MEAN CORPUSCULAR HEMOGLOBIN 31 pg (27.0-31.0); MEAN CORPUSCULAR HGB CONC 32 g/dl (33.0-37.0); MEAN PLATELET VOLUME 10.4 fl (7.4-10.4); MONO # 0.7 (0.1-0.6); MONO % 9.1 % (1.7-9.3); PLATELET COUNT 110 K/mm3 (130-400); REDCELL DISTRIBUTION WIDTH-CV 14.4 % (11.5-14.5)
--- NOTE | 2019-02-15 08:46 | NUR ---
Assessment charted. Pt awake and received am medications well. Pt up to go to the restroom with one assist and stated shooting pain in groin and penis that radiates to upper legs every time he stands. Pain is relieved with rest. Pt also reports pain with urination. IV fluids running with SCDs on. Discussed care with Dr. Riley and he will be in to see pt this evening. Will continue to monitor pt.
--- NOTE | 2019-02-15 10:40 | NUR ---
Initial visit; Patient thanked Link Trainer Maintenance Man for stopping and visiting along with keeping him in her prayers.
--- NOTE | 2019-02-15 10:50 | NUR ---
SW attended clinical rounds to discuss discharge planning. Patient lives independently at home with his . Patient plans to return there upon discharge. Patient's PCP is Dr Anthony and he obtains prescriptions from [facility]. Patient does not have any DME or home health services. Patient does have DPOA and SW requested a copy from patient's . Sw does not anticipate any discharge plans.
--- NOTE | 2019-02-15 18:42 | NUR ---
Pt states still experiencing pain when getting up to stand and walk and with urinating. Pt also still experiencing weakness with exertion as well. Pt voided well throughout the day and is drinking fluids. States no questions at this time and is waiting for consult with Dr. Riley this evening for more clarification. Will continue to monitor until giving report to nightshift staff.
--- NOTE | 2019-02-15 20:05 | NUR ---
Shift assessment complete. Pt resting in bed, awake, a&o, cooperative c cares. remains at bedside. Pt continued c/o "aweful" pain to pelvis which radiates down bilat groin et inner thigh. Pt reports "almost no" pain when sitting in bed but reports "when I get up it's a 10.... by the time I get back to bed it's too much to handle and that's when I get dizzy". Medications reviewed et pt provided c pyridium et percocet per request. Pt denies any other c/o. IV patent; IVF's infusing s difficulty. Tele in place. Pt denies further needs. Call light in reach, will monitor.
[2019-02-16] VITALS (7 sets, daily range): BP systolic 103–141; BP diastolic 48–69; PULSE 70–86; TEMP 97.8–99
[2019-02-16 06:16] LABS: BASO % 0.5 % (0.0-2.0); EOS # 1.4 (0.0-0.7); EOS % 17.9 % (0-4.0); GRAN # 4.5 (1.4-6.5); GRAN % 59.1 % (42.2-75.2); LYMPH # 1.1 (1.2-3.4); LYMPH % 14.6 % (20.0-51.0); MEAN CELL VOLUME 95 fl (80.0-100.0); MEAN CORPUSCULAR HEMOGLOBIN 31 pg (27.0-31.0); MEAN CORPUSCULAR HGB CONC 32 g/dl (33.0-37.0); MEAN PLATELET VOLUME 10.1 fl (7.4-10.4); MONO # 0.6 (0.1-0.6); MONO % 7.4 % (1.7-9.3); PLATELET COUNT 90 K/mm3 (130-400); RED BLOOD COUNT 3.28 M/mm3 (4.20-5.60); REDCELL DISTRIBUTION WIDTH-CV 14.6 % (11.5-14.5)
[2019-02-16 06:18] LABS: HEMATOCRIT 31.1 % (42.0-52.0)
[2019-02-16 06:29] LABS: CALCIUM 8.5 mg/dL (8.4-10.2); CREATININE, serum 1.2 (0.66-1.25)
--- NOTE | 2019-02-16 08:00 | NUR ---
Assessment complete. Pt is AXO X3, denies having any pain at this time. Breathing is even and unlabored on room air. Tele on. LH INT flushes easily, remains free of complications, and is CDI. Pt's is at the bedside; all questions answered. Pt helped to the bathroom; pericare provided. Pt is now back in the bed and he denies further needs. Call light within reach, will continue to monitor.
--- NOTE | 2019-02-16 14:30 | NUR ---
physical assessment compelted, pt is A+Ox3, pleasant, denies pain except with ambulation then pt reports sharp pain beginning in bilat inguinal area that radiates down thighs, pain worsens until he reclines. Pt reports doing AROM on bed lifting legs, etc. with no pain. INT free of redness, swelling. Call lgt in reach. Further phsycial assessment findings WNL
--- NOTE | 2019-02-16 20:10 | NUR ---
Shift assessment complete. Pt resting in bed, awake, a&o, cooperative c cares. Pt continued c/o pain to pelvis/groin et bilat inner thigh. Reports very little pain when in bed but states "It's definately a 10 when I get up or move much". Pt recently assisted to BR et back to bed et states "that was bad, I though I was gonna pass out again". Pt provided c PRN pain med per request. Pt denies other c/o. Bilat thighs noted to be tight/edematous, no reddness/warmth noted. Pt denies further needs. Call light in reach, will monitor.
[2019-02-17] VITALS (9 sets, daily range): BP systolic 82–141; BP diastolic 51–69; PULSE 67–83; TEMP 98.1–98.5
--- NOTE | 2019-02-17 04:20 | NUR ---
Pt c/o increased pain at this time. Reports pain continues to be "10/10 when I move", but reports pain to BLE now does not go away when laying in bed. Pt also c/o R flank pain described as "kidney pain I guess you would say". Bilat thighs noted to be very tight, no reddness/warmth noted. PRN pain industrial paramedic per pt request as well as PRN pyridium. Pt also assisted to reposition et provided c warm pack. Denies further c/o or needs at this time. Call light in reach, will monitor
[2019-02-17 06:29] LABS: BASO % 0.3 % (0.0-2.0); EOS # 0.9 (0.0-0.7); EOS % 10.1 % (0-4.0); GRAN # 6.5 (1.4-6.5); GRAN % 73.1 % (42.2-75.2); LYMPH # 0.8 (1.2-3.4); LYMPH % 8.7 % (20.0-51.0); MEAN CELL VOLUME 94 fl (80.0-100.0); MEAN CORPUSCULAR HEMOGLOBIN 31 pg (27.0-31.0); MEAN CORPUSCULAR HGB CONC 33 g/dl (33.0-37.0); MEAN PLATELET VOLUME 10.5 fl (7.4-10.4); MONO # 0.6 (0.1-0.6); MONO % 7.1 % (1.7-9.3); PLATELET COUNT 88 K/mm3 (130-400); RED BLOOD COUNT 3.22 M/mm3 (4.20-5.60); REDCELL DISTRIBUTION WIDTH-CV 14.6 % (11.5-14.5)
[2019-02-17 06:30] LABS: HEMATOCRIT 30.4 % (42.0-52.0)
[2019-02-17 06:39] LABS: CALCIUM 8.8 mg/dL (8.4-10.2); CREATININE, serum 1.25 (0.66-1.25)
--- NOTE | 2019-02-17 08:15 | NUR ---
Assessment complete. Pt is AXO X3, states has had pain in his groin rated at an 8/10. Breathing is even and unlabored on room air while lying in bed. Tele on. LH INT flushes easily, remains free of complications, and is CDI. Pt's is at the bedside; all questions answered. Pt is sitting up in the bed watching TV at this time and he denies fruther needs. Call light within reach, will continue to monitor.
[2019-02-17 12:20] LABS: COLLECTION METHOD CLEAN CATCH
[2019-02-17 12:38] LABS: MUCOUS Present /lpf; PH 5 (5-8); SQUAMOUS EPITHELIAL None Seen /hpf; URINE APPEARANCE Hazy; URINE BACTERIA Rare /hpf; URINE BILIRUBIN Negative (NEGATIVE); URINE BLOOD 2+ (NEGATIVE); URINE COLOR Amber; URINE GLUCOSE Negative (NEGATIVE); URINE KETONE Negative (NEGATIVE); URINE LEUKOCYTE ESTERASE Trace (NEGATIVE); URINE NITRATE Positive (NEGATIVE); URINE PROTEIN(semi-quant) 1+ (NEGATIVE); URINE RBC 20-50 /hpf; URINE UROBILINOGEN >=4.0 mg/dL (NEGATIVE)
--- NOTE | 2019-02-17 19:10 | NUR ---
Pt has been resting on and off throughout the day. He has had constant pain in his groin. Pain medication administered on JAN. Pt's has remained at the bedside; all questions answered. Pt is sitting up in the bed and he denies further needs. Call light within reach. Report given to NELY Viveros.
[2019-02-18] VITALS (7 sets, daily range): BP systolic 94–127; BP diastolic 52–65; PULSE 74–83; TEMP 98–98.8
--- NOTE | 2019-02-18 03:41 | NUR ---
PT STATES HE HAS PAIN WITH MOVEMENT MAINLY, STATES THAT ITS PRETTY MINAMAL IF HE LAYS IN BED AND DOESNT MOVE. HAS BEEN USING THE URINAL WHILE IN BED TO URINATE. PT HAD AZO AND PAIN PILL AT BED TIME. VITALS HAVE BEEN WNL.
--- NOTE | 2019-02-18 05:42 | NUR ---
PT ASSISTED TO BEDSIDE COMODE TO ATTEMPT A BM, PT WAS ABLE TO SLOWLY TAKE A FEW STEPS TO AND TURN TO COMODE. DID HAVE C/O ALOT OF ALOT OF PAIN. THIS NURSE ADMINSITERED PRN PAIN MED. PT WAS HELPED BACK INTO BED. PT WAS UNABLE HAVE A BM, DID HAVE NOTED FLATULANCE
[2019-02-18 06:22] LABS: BASO % 0.4 % (0.0-2.0); EOS # 1.2 (0.0-0.7); EOS % 11.5 % (0-4.0); GRAN # 7.8 (1.4-6.5); GRAN % 76.3 % (42.2-75.2); HEMATOCRIT 30.2 % (42.0-52.0); HEMOGLOBIN 9.7 g/dl (13.5-18.0); LYMPH # 0.6 (1.2-3.4); LYMPH % 5.5 % (20.0-51.0); MEAN CELL VOLUME 95 fl (80.0-100.0); MEAN CORPUSCULAR HEMOGLOBIN 31 pg (27.0-31.0); MEAN CORPUSCULAR HGB CONC 32 g/dl (33.0-37.0); MEAN PLATELET VOLUME 10.4 fl (7.4-10.4); MONO # 0.6 (0.1-0.6); MONO % 5.7 % (1.7-9.3); PLATELET COUNT 93 K/mm3 (130-400); RED BLOOD COUNT 3.18 M/mm3 (4.20-5.60); REDCELL DISTRIBUTION WIDTH-CV 14.5 % (11.5-14.5)
[2019-02-18 06:29] LABS: INR 1.3 (0.8-3.0); PROTHROMBIN TIME 15.2 SECONDS (9.7-12.8)
[2019-02-18 06:34] LABS: ALBUMIN 3.3 gm/dL (3.5-5.0); BILIRUBIN,TOTAL 1.1 mg/dL (0.0-1.0); CALCIUM 9.1 mg/dL (8.4-10.2); CREATININE, serum 1.41 (0.66-1.25); POTASSIUM 4.1 mmol/L (3.4-5.0); TOTAL PROTEIN 5.8 gm/dL (6.4-8.2)
--- NOTE | 2019-02-18 08:30 | NUR ---
Assessment complete and charted. Patient A&O, reporting dizziness with postional changes and pain in scrotum and thighs. Pain medication given when requested. Nurse assisted APPOINTMENT SCHEDULER with orthostatic BP. IV CDI. No further needs expressed from patient. Call light within reach
[2019-02-18 10:14] LABS: PARTIAL THROMBOPLASTIN TIME 32.9 SECONDS (26.0-37.0)
[2019-02-18] MEDS ORDERED: LEVAQUIN 5500 MG/TA1 PO (14:42)
[2019-02-18] MEDS ORDERED: LEADER CLE17 GM/Dose PO (14:43)
[2019-02-18] MEDS ORDERED: MELAT3MGTAB PO (14:43)
--- NOTE | 2019-02-18 15:30 | NUR ---
Patient transfered by EMS to [facility]. Personal belongings and discharging packet with patient. Report called to NELY Dotson. No further needs expressed from patient. Patient transfered with IV, heparin infusing at 21.8 ml/hr. EMS took hospital pump and will bring back to the facility.
== END 2019-02-18 15:30 | disposition short-term general hospital (02) | DRG 315 ==
LOC: COL.ER 15:51 → MEDICAL 18:44
PROVIDERS: Emergency Medicine; Hospitalist; Nurse Practitioner; Nurse Practitioner Family; ADMIT Hospitalist
DX: T82.868A Thrombosis due to vascular prosthetic devices, implants and grafts, initial encounter (principal); N17.9 Acute kidney failure, unspecified; I82.413 Acute embolism and thrombosis of femoral vein, bilateral; I82.433 Acute embolism and thrombosis of popliteal vein, bilateral; I82.423 Acute embolism and thrombosis of iliac vein, bilateral; I82.443 Acute embolism and thrombosis of tibial vein, bilateral; I82.623 Acute embolism and thrombosis of deep veins of upper extremity, bilateral; I12.9 Hypertensive chronic kidney disease with stage 1 through stage 4 chronic kidney disease, or unspecified chronic kidney disease; N18.3 Chronic kidney disease, stage 3 (moderate); E78.5 Hyperlipidemia, unspecified; Z86.711 Personal history of pulmonary embolism; Z79.01 Long term (current) use of anticoagulants; Z86.718 Personal history of other venous thrombosis and embolism; N40.1 Benign prostatic hyperplasia with lower urinary tract symptoms; R35.0 Frequency of micturition; Z85.828 Personal history of other malignant neoplasm of skin; R73.03 Prediabetes; R31.0 Gross hematuria; E86.0 Dehydration; R25.1 Tremor, unspecified; D69.6 Thrombocytopenia, unspecified
CPT/HCPCS: OP; 99223-AI; 99232-AI; 99233-AI; 99239; J0696; J1644; J3370; J7030; J7040; J7050; Q9967

== ENCOUNTER 2019-03-22 01:19 | Emergency (ER) | payer MEDICARE, BC ==
[~2019-03-22] VITALS: Ht 182.9 cm; Wt 104.5 kg
[~2019-03-22 01:19] MED LIST changes: +LEADER CLE17 GM/Dose PO; +LEVAQUIN 5500 MG/TA1 PO; +LOVENOX120 MG/0.8 SQ; +MELAT3MGTAB PO
[2019-03-22 01:33] VITALS: TEMP 98.6
[2019-03-22] MEDS ORDERED: COUMADIN 5MG5 MG/TAB PO (01:37)
[2019-03-22] MEDS ORDERED: COUMADIN 6MG6 MG/TAB PO (01:37)
[2019-03-22 01:55] LABS: BASO % 0.4 % (0.0-2.0); EOS # 0.8 (0.0-0.7); EOS % 7.5 % (0-4.0); GRAN # 7.6 (1.4-6.5); GRAN % 72.5 % (42.2-75.2); HEMATOCRIT 38.6 % (42.0-52.0); HEMOGLOBIN 11.7 g/dl (13.5-18.0); LYMPH # 1.4 (1.2-3.4); LYMPH % 13.2 % (20.0-51.0); MEAN CELL VOLUME 93 fl (80.0-100.0); MEAN CORPUSCULAR HEMOGLOBIN 28 pg (27.0-31.0); MEAN CORPUSCULAR HGB CONC 30 g/dl (33.0-37.0); MEAN PLATELET VOLUME 10.4 fl (7.4-10.4); MONO # 0.6 (0.1-0.6); MONO % 5.7 % (1.7-9.3); PLATELET COUNT 199 K/mm3 (130-400); RED BLOOD COUNT 4.15 M/mm3 (4.20-5.60); REDCELL DISTRIBUTION WIDTH-CV 15.6 % (11.5-14.5)
[2019-03-22 02:11] LABS: INR 1.9 (0.8-3.0); PROTHROMBIN TIME 21.1 SECONDS (9.7-12.8)
[2019-03-22 02:13] LABS: ALANINE AMINOTRANSFERASE 13 U/L (21-72); ALBUMIN 3.8 gm/dL (3.5-5.0); ALKALINE PHOSPHATASE 72 U/L (50-136); ANION GAP 11 mmol/L (7-16); AST,SGOT 20 U/L (15-37); BILIRUBIN,TOTAL 0.5 mg/dL (0.0-1.0); BLOOD UREA NITROGEN 23 mg/dL (9-20); CALCIUM 9.2 mg/dL (8.4-10.2); CARBON DIOXIDE 22 mmol/L (22-30); CHLORIDE 109 mmol/L (98-107); CREATININE, serum 1.58 (0.66-1.25); GLUCOSE 164 mg/dL (74-106); LIPASE 75 U/L (23-300); PARTIAL THROMBOPLASTIN TIME 38.2 SECONDS (26.0-37.0); POTASSIUM 3.9 mmol/L (3.4-5.0); SODIUM 142 mmol/L (137-145); TOTAL PROTEIN 6.6 gm/dL (6.4-8.2)
[2019-03-22 02:25] LABS: TROPONIN-I < 0.012 ng/mL (0.000-0.035)
[2019-03-22 03:45] VITALS: PULSE 78
[2019-03-22 04:39] VITALS: BP 113/60
== END 2019-03-22 04:25 | disposition short-term general hospital (02) ==
LOC: COL.ER 01:19
PROVIDERS: Emergency Medicine
DX: R07.89 Other chest pain (principal); N18.9 Chronic kidney disease, unspecified; E78.00 Pure hypercholesterolemia, unspecified; Z86.718 Personal history of other venous thrombosis and embolism; Z86.711 Personal history of pulmonary embolism; Z79.51 Long term (current) use of inhaled steroids; Z79.01 Long term (current) use of anticoagulants
CPT/HCPCS: J1650; J2405; J3010; J7030

== ENCOUNTER → 2019-07-01 | Outpatient (CLI) | payer MEDICARE, BC ==
[~2019-07-01] MED LIST changes: +COUMADIN 6MG6 MG/TAB PO
== END ==
LOC: MC.RAD 12:46
DX: N63.41 Unspecified lump in right breast, subareolar (principal)